=== PATIENT | female | born 2000 | race Caucasian/White ===

== ENCOUNTER 2022-11-11 15:11 | Day surgery (SDC) | payer OTHER | END 2022-11-11 17:00 | disposition home health service (06) | LOC: CSHLD/OP 15:11 | PROVIDERS: ATTEND Family Medicine | DX: Z36.9 Encounter for antenatal screening, unspecified (principal); O36.8130 Decreased fetal movements, third trimester, not applicable or unspecified; Z3A.38 38 weeks gestation of pregnancy | CPT/HCPCS: 76819 ==

== ENCOUNTER 2022-11-14 13:23 | Inpatient (IN) | payer OTHER ==
[~2022-11-14 13:23] MED LIST: Bupivacaine 0.25% HCL 30 ML VIAL ONE; Bupivacaine PF 0.5% 30 ML VIAL ONE
[2022-11-14] MEDS ORDERED: Oxytocin 30 units/NS 500 ML 500 ML IV SCH (18:48)
[2022-11-14] MEDS ORDERED: Misoprostol 200 MCG TAB PR PRN (18:48)
[2022-11-14] MEDS ORDERED: Tranexamic Acid 1,000 MG/10 ML VIAL IVP PRN (18:48)
[2022-11-14] MEDS ORDERED: Lidocaine 1% (PF) 30 ML VIAL SC PRN (18:48)
[2022-11-14] MEDS ORDERED: Promethazine HCl 25 MG/ML VIAL IM PRN ×2 (18:48→23:52)
[2022-11-14] MEDS ORDERED: fentaNYL 50 mcg/mL 1 mL Vial SLOW IVP PRN (18:48)
[2022-11-14] MEDS ORDERED: Ibuprofen 800 MG TAB PO PRN (18:48)
[2022-11-14] MEDS ORDERED: Acetaminophen 500 MG TAB PO PRN (18:48)
[2022-11-14] MEDS ORDERED: Methylergonovine 0.2 MG/ML VIAL IM PRN (18:48)
[2022-11-14] MEDS ORDERED: Diphenoxylate HCl/Atropine Tablet PO PRN (18:48)
[2022-11-14] MEDS ORDERED: Carboprost 250 MCG/ML AMP IM PRN (18:48)
[2022-11-14] MEDS ORDERED: HYDROcodone/Acetaminophen 5/325 mg Tablet PO PRN (18:48)
[2022-11-14] MEDS ORDERED: hydrALAZINE 20 MG/ML VIAL SLOW IVP PRN (18:48)
[2022-11-14] MEDS ORDERED: Ondansetron PF 4 MG/2 ML Vial IVP PRN ×2 (18:48→23:52)
[2022-11-14 18:58] VITALS: BMI 38.5
[2022-11-14 19:04] LABS: Hematocrit 37.4 % (34.9-44.5); Hemoglobin 12.7 g/dL (12.0-15.5); Mean Corpuscular Hemoglobin 29.5 pg (27.0-33.0); Mean Corpuscular Volume 86.8 fl (81.6-98.3); Mean Platelet Volume 14.5 fl (7.4-10.4); Platelet Count 204 10x3/uL (150-450); RBC Distribution Width 13.6 % (11.5-14.5); Red Blood Cell (RBC) Count 4.31 10x6/uL (3.90-5.03); White Blood Cell (WBC) Count 8.7 10x3/uL (3.5-10.5)
[2022-11-14 19:29] LABS: Syphilis Antibody Nonreactive (Nonreactive); Syphilis Antibody Index 0.05 S/CO (<1.00 Non-Reactive)
[2022-11-14 19:30] LABS: HBSAg Index 0.18 S/CO (0-0.99); Hep B Surf Ag - L&D Non-Reactive S/CO (NonReactive)
[2022-11-14] MEDS ORDERED: fentaNYL/Ropivacaine Epidural 100 ML ONE (23:14)
[2022-11-14] MEDS ORDERED: Communication Order-Pharmacy FS SCH (23:45)
[2022-11-14] MEDS: Lactated Ringer's 1,000 ML IV SCH (23:46)
[2022-11-14] MEDS ORDERED: Naloxone HCl 0.4 mg/ml Vial IVP PRN ×2 (23:52)
[2022-11-14] MEDS ORDERED: Moisturizing Cream (Eucerin) 113 GM JAR TOP PRN (23:52)
[2022-11-14] MEDS ORDERED: ePHEDrine Sulfate 50 MG/10 ML VIAL SLOW IVP PRN (23:52)
[2022-11-14] MEDS ORDERED: Lactated Ringer's 500 ML IV PRN (23:52)
[2022-11-14] MEDS ORDERED: diphenhydrAMINE 50 MG/ML VIAL IVP PRN (23:52)
[2022-11-14] MEDS ORDERED: Acetaminophen 325 MG TAB PO PRN (23:52)
[2022-11-15] MEDS ORDERED: Calcium Carbonate 500 MG ChewTAB PO SCH (06:15)
[2022-11-15] MEDS: fentaNYL 2 mcg/Ropivacaine 0.2% Epidural 100 ML CADD EPIDURAL SCH ×2 (11:00→19:00)
[2022-11-15] MEDS ORDERED: Dexmedetomidine 200 MCG/2 ML VIAL ONE (20:01)
[2022-11-15] MEDS ORDERED: Azithromycin 500 MG VIAL ONE ×2 (21:23)
[2022-11-15] MEDS ORDERED: CEFAZOLIN 2 GM VIAL ONE (21:23)
[2022-11-15] MEDS ORDERED: Chloroprocaine 3% PF 20 ML VIAL ONE (21:27)
[2022-11-15] MEDS ORDERED: Dexamethasone 4 mg/ml Vial ONE (21:50)
[2022-11-15] MEDS ORDERED: Promethazine HCl 25 MG/ML VIAL ONE (21:50)
[2022-11-15] MEDS ORDERED: Metoclopramide HCl 10 MG/2 ML VIAL ONE ×2 (21:50→22:07)
[2022-11-15] MEDS ORDERED: Ketorolac Tromethamine 30 MG/ML VIAL ONE (21:53)
[2022-11-15] MEDS ORDERED: Phenylephrine 40 MG/NS 250 ML 250 ML ONE (22:01)
[2022-11-15 22:11] LABS: RapidComm Collect By CBN; pH (Cord, venous) 7.328 (7.250-7.350)
[2022-11-15 22:12] LABS: RapidComm Collect By CBN
[2022-11-15] MEDS ORDERED: EPINEPHrine 1 MG/10 ML Abboject SYRINGE ONE (22:13)
[2022-11-15] MEDS ORDERED: Moisturizing Cream (Eucerin) 113 GM JAR TOP PRN (22:37)
[2022-11-15] MEDS ORDERED: diphenhydrAMINE 50 MG/ML VIAL IVP PRN (22:37)
[2022-11-15] MEDS ORDERED: Naloxone HCl 0.4 mg/ml Vial IV PRN (22:37)
[2022-11-15] MEDS ORDERED: fentaNYL 50 mcg/mL 1 mL Vial SLOW IVP PRN (22:37)
[2022-11-15] MEDS ORDERED: Ketorolac Tromethamine 30 MG/ML VIAL IVP PRN (22:37)
[2022-11-15] MEDS ORDERED: Meperidine HCl/PF 25 MG/ML VIAL SLOW IVP PRN (22:37)
[2022-11-15] MEDS ORDERED: Promethazine HCl 25 MG/ML VIAL IM PRN (22:37)
[2022-11-15] MEDS ORDERED: Promethazine HCl 25 MG SUPP PR PRN (22:37)
[2022-11-15] MEDS ORDERED: Naloxone HCl 0.4 mg/ml Vial IVP PRN ×2 (22:37)
[2022-11-15] MEDS ORDERED: Ondansetron PF 4 MG/2 ML Vial IVP PRN ×2 (22:37)
[2022-11-15] MEDS ORDERED: Communication Order-Pharmacy FS SCH (22:45)
[2022-11-15] MEDS ORDERED: Ketorolac Tromethamine 30 MG/ML VIAL IVP SCH (22:45)
[2022-11-16] MEDS ORDERED: hydrALAZINE 20 MG/ML VIAL ONE (01:01)
[2022-11-16] MEDS: Magnesium Sulfate 20 gm/500 ml 20 GM/500 ML BAG ONE ×2 (01:06→09:36)
[2022-11-16] MEDS ORDERED: hydrALAZINE 20 MG/ML VIAL SLOW IVP PRN (01:49)
[2022-11-16] MEDS ORDERED: Bisacodyl 10 MG SUPP PR PRN (01:49)
[2022-11-16] MEDS ORDERED: Promethazine HCl 25 MG/ML VIAL IM PRN (01:49)
[2022-11-16] MEDS ORDERED: Ondansetron PF 4 MG/2 ML Vial IVP PRN (01:49)
[2022-11-16] MEDS ORDERED: diphenhydrAMINE 25 MG CAP PO PRN (01:49)
[2022-11-16] MEDS ORDERED: Lanolin Ointment 7 GM TUBE TOP PRN (01:49)
[2022-11-16] MEDS ORDERED: Boostrix 0.5 ML (Tdap) VIAL (>/=7 yrs of age) IM ONE (01:49)
[2022-11-16 02:48] LABS: Hematocrit 35.5 % (34.9-44.5); Hemoglobin 11.9 g/dL (12.0-15.5); Mean Corpuscular HGB CONC 33.5 g/dL (32.0-36.0); Mean Corpuscular Hemoglobin 29.8 pg (27.0-33.0); Mean Corpuscular Volume 88.8 fl (81.6-98.3); Mean Platelet Volume 14.4 fl (7.4-10.4); Platelet Count 150 10x3/uL (150-450); RBC Distribution Width 13.5 % (11.5-14.5)
[2022-11-16] MEDS: Misoprostol 100 MCG TAB VAG SCH ×2 (03:23→03:26)
[2022-11-16] MEDS: Ketorolac Tromethamine 30 MG/ML VIAL IVP SCH ×3 (03:52→14:45)
[2022-11-16] MEDS: Ferrous Sulfate 325 MG TAB PO SCH (08:12)
[2022-11-16] MEDS: Docusate 100 MG CAP PO SCH (08:12)
[2022-11-16] MEDS: Prenatal Vitamin 1 TAB PO SCH (08:12)
[2022-11-16] MEDS ORDERED: Magnesium Sulfate 20 gm/500 ml 20 GM/500 ML BAG ONE (09:34)
[2022-11-16] MEDS ORDERED: Meperidine HCl/PF 25 MG/ML VIAL IM PRN (10:45)
[2022-11-16] MEDS ORDERED: Magnesium Sulfate 20 gm/500 ml 20 GM/500 ML BAG IVPB PRN (12:45)
[2022-11-16] MEDS ORDERED: Magnesium Sulfate 20 gm/500 ml 4 GM/100 ML BAG IVPB ONE (12:45)
[2022-11-16] MEDS ORDERED: Acetaminophen 325 MG TAB ONE (20:20)
[2022-11-16] MEDS ORDERED: Acetaminophen 325 MG TAB PO SCH (20:45)
[2022-11-17] MEDS: HYDROcodone/Acetaminophen 5/325 mg Tablet PO PRN ×6 (01:37→20:01)
[2022-11-17] MEDS: Simethicone Chewable 80 MG TAB PO PRN ×3 (03:04→17:50)
[2022-11-17] MEDS: Ibuprofen 800 MG TAB PO SCH ×3 (05:10→21:15)
[2022-11-17] MEDS: Docusate 100 MG CAP PO SCH ×3 (07:33→20:00)
[2022-11-17] MEDS: Prenatal Vitamin 1 TAB PO SCH (07:33)
[2022-11-17] MEDS: Ferrous Sulfate 325 MG TAB PO SCH ×2 (08:12→08:15)
[2022-11-17] MEDS: Ketorolac Tromethamine 30 MG/ML VIAL IVP SCH (21:18)
[2022-11-18] MEDS: HYDROcodone/Acetaminophen 5/325 mg Tablet PO PRN ×4 (00:12→13:43)
[2022-11-18] MEDS: Ferrous Sulfate 325 MG TAB PO SCH ×2 (03:05→09:11)
[2022-11-18] MEDS: Ibuprofen 800 MG TAB PO SCH ×2 (05:05→13:41)
[2022-11-18] MEDS ORDERED: Ondansetron ODT 4 MG TAB SL PRN (08:40)
[2022-11-18] MEDS: Lactated Ringer's 1,000 ML IV SCH (08:51)
[2022-11-18] MEDS ORDERED: Labetalol HCl 100 MG TAB PO SCH (09:00)
[2022-11-18] MEDS: Prenatal Vitamin 1 TAB PO SCH (09:07)
[2022-11-18] MEDS: Docusate 100 MG CAP PO SCH (09:07)
[2022-11-18 11:17] VITALS: BP 118/60; TEMP 99
== END 2022-11-18 14:15 | disposition home or self-care (01) | DRG 788 ==
LOC: CSHLD 18:47 → CSHPP 11-16 23:14
PROVIDERS: ADMIT Family Medicine; ATTEND Family Medicine
PROC: 10D00Z1 Extraction of Products of Conception, Low, Open Approach (ICD-10-PCS; principal; 2022-11-15)
PROC: 10907ZC Drainage of Amniotic Fluid, Therapeutic from Products of Conception, Via Natural or Artificial Opening (ICD-10-PCS; 2022-11-15)
PROC: 10H07YZ Insertion of Other Device into Products of Conception, Via Natural or Artificial Opening (ICD-10-PCS; 2022-11-15)
PROC: 3E0P05Z Introduction of Adhesion Barrier into Female Reproductive, Open Approach (ICD-10-PCS; 2022-11-15)
DX: O76 Abnormality in fetal heart rate and rhythm complicating labor and delivery (principal); Z37.0 Single live birth; Z3A.39 39 weeks gestation of pregnancy; Z88.1 Allergy status to other antibiotic agents; O69.81X0 Labor and delivery complicated by cord around neck, without compression, not applicable or unspecified; O32.3XX0 Maternal care for face, brow and chin presentation, not applicable or unspecified
CPT/HCPCS: 36415; 51702; 82805; 85027; 86780; 86850; 86900; 86901; 87340; J0171; J0360; J1100; J1885; J2401; J2405; J2550; J2590; J2765; J3475; J7120; Q0162; S0020

== ENCOUNTER 2025-02-05 13:14 | Outpatient (CLI) | payer MEDICAID | END 2025-02-05 13:15 | disposition home or self-care (01) | LOC: CSHULT 13:14 | PROVIDERS: ATTEND Family Medicine | DX: O09.892 Supervision of other high risk pregnancies, second trimester (principal); Z3A.20 20 weeks gestation of pregnancy | CPT/HCPCS: 76805 ==